=== PATIENT | female | born 1960 | race Caucasian/White ===

== ENCOUNTER 2022-07-22 06:35 | Day surgery (SDC) | payer BC ==
[~2022-07-22 06:35] MED LIST: Dextrose 5%-0.45% NaCl 1,000 ML IV SCH; Midazolam 1 MG/ML 2 ML SDV ONE; Sodium Chloride 0.9% 10 ML Syringe FLUSH PRN; Sodium Chloride 0.9% 10 ML Syringe FLUSH SCH; fentaNYL 100 MCG/2 ML SDV ONE
[2022-07-22] MEDS ORDERED: fentaNYL 100 MCG/2 ML SDV IV ONE ×6 (06:36→07:55)
[2022-07-22] MEDS ORDERED: Midazolam 1 MG/ML 2 ML SDV IV ONE ×7 (06:36→07:45)
[2022-07-22 09:54] VITALS: BP 138/72; PULSE 82
== END 2022-07-22 09:50 | disposition home or self-care (01) ==
LOC: DL.ENDO 06:35
PROVIDERS: ATTEND Internal Medicine Gastroenterology
DX: Z12.11 Encounter for screening for malignant neoplasm of colon (principal); K63.5 Polyp of colon; E11.9 Type 2 diabetes mellitus without complications; I10 Essential (primary) hypertension; F41.1 Generalized anxiety disorder; E78.5 Hyperlipidemia, unspecified; E03.9 Hypothyroidism, unspecified; E66.09 Other obesity due to excess calories; Z98.890 Other specified postprocedural states; Z68.31 Body mass index [BMI] 31.0-31.9, adult
CPT/HCPCS: 45378; J2250; J3010; J7042